=== PATIENT | female | born 1965 | race Caucasian/White ===

== ENCOUNTER 2018-01-29 20:36 | Emergency (ER) | payer MEDICAID ==
[~2018-01-29] VITALS: Ht 160 cm; Wt 94.1 kg
[2018-01-29 21:24] VITALS: Ht 160 cm; Wt 94.1 kg
[2018-01-29 22:55] VITALS: BP 133/88
== END 2018-01-29 22:55 | disposition home or self-care (01) ==
LOC: ED 20:36
DX: S80.862A Insect bite (nonvenomous), left lower leg, initial encounter (principal); S80.861A Insect bite (nonvenomous), right lower leg, initial encounter; L03.115 Cellulitis of right lower limb; L03.116 Cellulitis of left lower limb; I10 Essential (primary) hypertension; E78.00 Pure hypercholesterolemia, unspecified; E11.9 Type 2 diabetes mellitus without complications; W57.XXXA Bitten or stung by nonvenomous insect and other nonvenomous arthropods, initial encounter; Y93.89 Activity, other specified; Y92.89 Other specified places as the place of occurrence of the external cause; Y99.8 Other external cause status
CPT/HCPCS: J1200

== ENCOUNTER 2018-12-30 20:02 | Emergency (ER) | payer MEDICAID ==
[~2018-12-30] VITALS: Ht 160 cm; Wt 94.3 kg
[2018-12-30 20:24] VITALS: Ht 160 cm; Wt 94.3 kg
[2018-12-30 22:20] VITALS: BP 147/75
== END 2018-12-30 22:20 | disposition home or self-care (01) ==
LOC: ED 20:02
DX: S80.862A Insect bite (nonvenomous), left lower leg, initial encounter (principal); S80.861A Insect bite (nonvenomous), right lower leg, initial encounter; R21 Rash and other nonspecific skin eruption; I10 Essential (primary) hypertension; E11.9 Type 2 diabetes mellitus without complications; E78.00 Pure hypercholesterolemia, unspecified; W57.XXXA Bitten or stung by nonvenomous insect and other nonvenomous arthropods, initial encounter; Y93.89 Activity, other specified; Y92.89 Other specified places as the place of occurrence of the external cause; Y99.8 Other external cause status